=== PATIENT | male | born 1995 | race Caucasian/White ===

== ENCOUNTER 2018-02-08 21:30 | Outpatient (CLI) | payer OTHER | END 2018-02-08 21:31 | disposition EMS.NT | LOC: EMS 21:30 | PROVIDERS: ATTEND Surgery | DX: R09.89 Other specified symptoms and signs involving the circulatory and respiratory systems (principal) ==

== ENCOUNTER 2018-02-08 22:30 | Emergency (ER) | payer OTHER ==
[2018-02-08] MEDS ORDERED: LORazepam 2 MG/ML VIAL IVP STA (23:04)
[2018-02-08] MEDS ORDERED: SODIUM CHLORIDE 0.9% 1,000 ML IV ONE (23:04)
--- NOTE | 2018-02-08 23:19 | ED Physician Documentation ---
History of Present Illness - Stated complaint Stated Complaint: ANXIETY - Chief complaint Chief Complaint: General - History obtained from History obtained from: Patient, EMS - Additonal information Additional information: The patient is a 22-year-old male who presents via ambulance after feeling "jittery, breathing fast, and tingling" in his fingers and around his lips. He reports drinking red bull and vodka heavily last night. He was hung over today with episodes of vomiting. He denies chest pain, shortness of breath or abdominal pain. He has no history of similar symptoms in the past. Review of Systems Constitutional: reports: Other (lightheaded). denies: Fever Ears: denies: Tinnitus/ringing Nose: denies: Congestion Throat: denies: Sore throat Cardiac: denies: Chest pain / pressure Respiratory: denies: Cough GI: reports: Vomiting. denies: Abdominal Pain, Diarrhea : denies: Dysuria Skin: denies: Rash Musculoskeletal: denies: Back pain Neurologic: reports: Numbness (Episode of fingers and perioral tingling.), Headache (mild). denies: Focal weakness PD PAST MEDICAL HISTORY - Past Medical History Past Medical History: No - Past Surgical History Past Surgical History: No - Present Medications Home Medications: Ambulatory Orders Medication Instructions Recorded Confirmed Lorazepam [Ativan] 1 mg PO Q6HR PRN #12 tablet 02/09/18 - Allergies Allergies/Adverse Reactions: Allergies Allergy/AdvReac Type Severity Reaction Status Date / Time No Known Drug Allergies Allergy Verified 02/09/18 09:29 - Social History Does the pt smoke?: No Smoking Status: Never smoker Does the pt drink ETOH?: Yes ETOH Use: Liquor Does the pt have substance abuse?: No - Immunizations Immunizations are current?: Yes PD ED PE NORMAL - Vitals Vital signs reviewed: Yes (borderline hypertension initially.) - General General: Alert and oriented X 3, Well developed/nourished - HEENT HEENT: Atraumatic, EOMI, Moist mucous membranes, Pharynx benign - Neck Neck: Supple, no meningeal sign, No adenopathy, No JVD - Cardiac Cardiac: RRR, No murmur - Respiratory Respiratory: No respiratory distress, Clear bilaterally - Abdomen Abdomen: Soft, Non tender - Back Back: No CVA TTP - Derm Derm: No rash - Extremities Extremities: No tenderness to palpate, No edema, No calf tenderness / cord - Neuro Neuro: Alert and oriented X 3, No motor deficit, No sensory deficit, Normal speech Results - Vitals Vitals: Vital Signs - 24 hr 02/08/18 23:22 Heart Rate 95 Respiratory 16 Rate Blood Pressure 146/83 H O2 Saturation 100 Oxygen O2 Source Room air PD MEDICAL DECISION MAKING - ED course Complexity details: re-evaluated patient, considered differential, d/w patient ED course: The patient's presentation is most consistent with hyperventilation syndrome and dehydration, related to overindulgence in alcohol and subsequent vomiting. His presentation does not suggest an acute pulmonary etiology such as pulmonary embolus nor does it suggest a cardiac dysrhythmia. Treatment in the emergency department included administration of normal saline 1 L IV and Ativan 0.5 mg IV. His symptoms improved significantly with the above treatment. Prior to discharge he complained of mild epigastric discomfort. Maalox 30 mL was administered orally, with improvement of his epigastric discomfort. I discussed with him the expected course of illness, symptomatic treatment and outpatient follow-up, as well as potentially worrisome signs or symptoms that should prompt reevaluation in the emergency department. Departure - Departure Disposition: 01 Home, Self Care Clinical Impression: Hyperventilation syndrome, Dehydration Condition: Stable Instructions: ED Hyperventilation Syndrome, ED Dehydration Follow-Up: [facility]ORE[facility] Vann [Provider Group] Comments: Drink plenty of fluids. Minimize caffeinated and alcoholic beverages. Follow-up with your primary physician within 1 week. Call to schedule appointment. Return to the [facility] if you develop recurrent episodes of difficulty sharad athing, increasing abdominal pain or persistent vomiting, or otherwise worsening Discharge Date/Time: 02/08/18 23:31
[2018-02-08 23:23] VITALS: BP 146/83
[2018-02-08] MEDS ORDERED: MAG HYDROX/AL HYDROX/SIMETH 30 ML UDC PO STA (23:26)
== END 2018-02-08 23:31 | disposition home or self-care (01) ==
LOC: ED 22:30
DX: F45.8 Other somatoform disorders (principal); E86.0 Dehydration
CPT/HCPCS: 96374; 99283; 99284; A9270; J2060

== ENCOUNTER 2018-02-09 09:06 | Emergency (ER) | payer OTHER ==
--- NOTE | 2018-02-09 10:21 | ED Physician Documentation ---
History of Present Illness - Stated complaint Stated Complaint: PANIC ATTACK - Chief complaint Chief Complaint: General - History obtained from History obtained from: Patient - History of Present Illness Timing: Today - Additonal information Additional information: 22-year-old male who was diagnosed with a panic attack yesterday and given intravenous saline and magnesium as well as Ativan had improvement yesterday and felt well when he woke up this morning went into class at the [employer] and while he was in class he began to feel symptoms again and he was asked by his command to come to the emergency department for reevaluation. The patient does state that he did some drinking over the weekend and felt that he was a bit dehydrated and felt that the IV helped him yesterday. He has not had much to drink today. Review of Systems Constitutional: denies: Fever, Chills Eyes: denies: Decreased vision Ears: denies: Ear pain Nose: denies: Congestion Throat: denies: Sore throat Cardiac: reports: Palpitations. denies: Chest pain / pressure Respiratory: reports: Dyspnea. denies: Cough GI: denies: Abdominal Pain, Abdominal Swelling, Nausea, Vomiting, Constipation, Diarrhea : denies: Dysuria, Frequency PD PAST MEDICAL HISTORY - Past Surgical History Past Surgical History: No - Present Medications Home Medications: Ambulatory Orders Medication Instructions Recorded Confirmed Lorazepam [Ativan] 1 mg PO Q6HR PRN #12 tablet 02/09/18 - Allergies Allergies/Adverse Reactions: Allergies Allergy/AdvReac Type Severity Reaction Status Date / Time No Known Drug Allergies Allergy Verified 02/09/18 09:29 - Social History Does the pt smoke?: No Smoking Status: Never smoker Does the pt drink ETOH?: Yes Does the pt have substance abuse?: No - Immunizations Immunizations are current?: Yes PD ED PE NORMAL - Vitals Vital signs reviewed: Yes (normal ) - General General: Alert and oriented X 3, No acute distress, Well developed/nourished - HEENT HEENT: Atraumatic, PERRL, EOMI - Neck Neck: Supple, no meningeal sign - Cardiac Cardiac: RRR, No murmur - Respiratory Respiratory: No respiratory distress, Clear bilaterally - Abdomen Abdomen: Soft, Non tender - Back Back: No CVA TTP, No spinal TTP - Derm Derm: Normal color, Warm and dry, No rash - Extremities Extremities: No deformity, No edema - Neuro Neuro: Alert and oriented X 3, talent program manager 2-12 intact, No motor deficit, No sensory deficit, Normal speech Eye Opening: Spontaneous Motor: Obeys Commands Verbal: Oriented GCS Score: 15 - Psych Psych: Normal mood, Normal affect Results - Vitals Vitals: Vital Signs - 24 hr 02/09/18 09:24 Temperature 37 C Heart Rate 82 Respiratory 18 Rate Blood Pressure 120/69 O2 Saturation 100 Oxygen O2 Source Room air Procedures - IVC sono (time) 1015 Bedside IVC sono: IVC measures (cm) (1.12), IVC collapsed c insp (cm) (complete), Dehydration (est 1 liter deficit) PD MEDICAL DECISION MAKING - ED course Complexity details: reviewed old records, reviewed results, re-evaluated patient, considered differential, d/w patient ED course: 22-year-old male with a history of a panic attack yesterday has not felt anxious about any of this but does have symptoms of hyperventilation syndrome. On review his history it appears that he did do some drinking over the weekend and was likely very dehydrated yesterday. He is continued to be dehydrated today and I have examined him with interrogation of the inferior vena cava with the bedside ultrasound and I have demonstrated to him his level of dehydration and have recommended that he consume extra fluids when he is drinking at the conclusion of his night and I discussed with the patient rebreathing his air when he does develop hypoventilation syndrome. I will provide the patient with some antianxiety medication to take as needed but I really believe that his symptoms are more related to dehydration. Departure - Departure Disposition: 01 Home, Self Care Clinical Impression: Hyperventilation syndrome, Dehydration Instructions: ED Dehydration, ED Hyperventilation Syndrome Follow-Up: [facility] Vann [Provider Group] Prescriptions: Lorazepam [Ativan] 1 mg PO Q6HR PRN #12 tablet PRN Reason: Anxiety
[2018-02-09 10:29] VITALS: BP 125/61
== END 2018-02-09 10:30 | disposition home or self-care (01) ==
LOC: ED 09:06
DX: R06.4 Hyperventilation (principal); E86.0 Dehydration
CPT/HCPCS: 99282; 99284